=== PATIENT | male | born 1940 | race Caucasian/White ===

== ENCOUNTER → 2016-07-11 | Outpatient (CLI) | payer MEDICARE ==
[2016-07-11 10:58] LABS: Blood Urea Nitrogen 18 mg/dL (9-20); Non-African American GFR(MDRD) >60 (>60 ml/min/1.73 sqM)
== END | disposition home or self-care (01) ==
LOC: LABWHC1 10:14
PROVIDERS: ATTEND Internal Medicine Geriatric Medicine
DX: M45.6 Ankylosing spondylitis lumbar region (principal)
CPT/HCPCS: 36415; 82565; 84520

== ENCOUNTER → 2016-07-12 | Outpatient (CLI) | payer MEDICARE ==
--- NOTE | 2016-07-12 13:10 | MR ---
EXAMINATION TYPE: MR lumbar spine wo/w con DATE OF EXAM: 07/12/2016 12:42 PM COMPARISON: NONE HISTORY: ANKYLOSING SPONDYLITIS LUMBAR REGION TECHNIQUE: Multiplanar, multisequence images of the lumbar spine were acquired utilizing 20 mL intravenous Multi Padmini gadolinium contrast. T12-L1: Moderate disc desiccation noted. Right paracentral disc bulge without herniation. No evidence for central stenosis. Mild right foraminal encroachment. Facet joint arthropathy. L1-L2: Moderate disc desiccation noted. Posterocentral disc bulge without herniation. No evidence for central stenosis. Mild bilateral foraminal encroachment. Facet joint arthropathy. L2-L3: Moderate disc desiccation noted. Right paracentral disc bulge without herniation. No evidence for central stenosis. No significant foraminal encroachment. Facet joint arthropathy. L3-L4: Moderate disc desiccation noted. Posterocentral disc bulge without herniation. No evidence for central stenosis. Mild bilateral foraminal encroachment. Facet joint arthropathy. L4-L5: Severe disc desiccation with vacuum disc identified. Moderate posterior disc bulging. Hypertro phy of the ligamentum flavum and facet joint arthropathy contribute to moderate central stenosis. Jean ateral foraminal encroachment noted. L5-S1: Severe disc desiccation with vacuum disc. Posterocentral disc bulge with partial encapsulating spur resulting in disc endplate complex. Mild bilateral lateral recess stenosis. Facet joint arthrop athy resulting in moderate bilateral foraminal encroachment. Lumbar segments are intact. No paraspinal masses are identified. Conus medullaris has a normal appe arance. There is ventral spondylosis with syndesmophyte formation which may reflect ankylosing spondy litis. IMPRESSION: 1. Multilevel degenerative disc disease greatest at L4-5 where there is moderate central stenosis. 2. syndesmophyte formation suggesting ankylosing spondylitis.
== END | disposition home or self-care (01) ==
LOC: RADMRIMAIN 11:28
PROVIDERS: ATTEND Internal Medicine Geriatric Medicine
DX: M48.06 Spinal stenosis, lumbar region (principal); M51.36 Other intervertebral disc degeneration, lumbar region
CPT/HCPCS: 72158; A9577

== ENCOUNTER 2018-03-24 03:36 | Inpatient (IN) | payer MEDICARE ==
[2018-03-24] MEDS ORDERED: LIDOCAINE 1% INJ 10MG/ML (20 ML MDV) ONE (03:49)
[2018-03-24] MEDS ORDERED: MIDAZOLAM 1 MG/ML 5 ML VIAL IV STA (03:52)
[2018-03-24] MEDS ORDERED: SODIUM CHLORIDE 0.9% 1,000 ML IV ONE ×2 (03:56→05:10)
--- NOTE | 2018-03-24 04:01 | XR ---
EXAMINATION TYPE: XR chest 1V portable DATE OF EXAM: 03/24/2018 COMPARISON: NONE HISTORY: Chest pain TECHNIQUE: Single frontal view of the chest is obtained. FINDINGS: Endotracheal tube is almost 6 cm from the feli. Right subclavian catheter has the tip in the top of the right atrium. Lungs are clear. There is no heart failure. There are chest leads. Bony thorax is intact. Nasogastric tube is in good position. There is a large amount of air in the stomac h. IMPRESSION: Dilated air-filled stomach. No cardiopulmonary disease.
[2018-03-24 04:03] LABS: HCT 52.8 % (39.0-53.0); HGB 16.3 gm/dL (13.0-17.5); Hypochromasia Moderate; MCH 30.3 pg (25.0-35.0); MCHC 30.9 g/dL (31.0-37.0); MCV 98.2 fL (80.0-100.0); Platelet Count 398 k/uL (150-450); Poikilocytosis Slight; RBC 5.38 m/uL (4.30-5.90); RDW 14.2 % (11.5-15.5)
[2018-03-24 04:08] LABS: Albumin 4.2 g/dL (3.5-5.0); Calcium 9.4 mg/dL (8.4-10.2); Total Bilirubin 0.9 mg/dL (0.2-1.3); Total Protein 7.1 g/dL (6.3-8.2)
--- NOTE | 2018-03-24 04:11 | ED ---
General Adult HPI - General Chief complaint: Chest Pain Stated complaint: cardiac Source: EMS Mode of arrival: EMS - History of Present Illness Initial comments: 78-year-old male presents as transfer from outside hospital with acute [place] and shock. Patient was intubated prior to transfer. He is started on heparin and dopamine infusion. History is limited. Patient had ST segment elevation in inferior leads according to transferring physician. Hypotensive, bradycardic. - Related Data Home Medications Medication Instructions Recorded Confirmed Acetaminophen Tab [Tylenol] 650 mg PO Q6H PRN 12/07/15 12/07/15 Doxazosin Mesylate 4 mg PO DAILY 12/07/15 12/07/15 Famotidine [Pepcid] 20 mg PO DAILY 12/07/15 12/07/15 Tamsulosin HCl [Flomax] 0.4 mg PO DAILY 12/07/15 12/07/15 Previous Rx's Medication Instructions Recorded Aspirin 325 mg PO DAILY tab 12/09/15 Atorvastatin [Lipitor] 80 mg PO HS #30 tab 12/09/15 Clopidogrel [Plavix] 75 mg PO DAILY #30 tab 12/09/15 Furosemide [Lasix] 40 mg PO DAILY #30 tab 12/09/15 Isosorbide Mononitrate ER [Imdur] 30 mg PO DAILY #30 tab.er.24h 12/09/15 Lisinopril [Zestril] 10 mg PO BID #60 tab 12/09/15 Loperamide [Imodium] 2 mg PO BID #60 cap 12/09/15 Metoprolol Tartrate [Lopressor] 25 mg PO BID #60 tab 12/09/15 Nitroglycerin Sl Tabs [Nitrostat] 0.4 mg SUBLINGUAL Q5M PRN #25 tab 12/09/15 amLODIPine [Norvasc] 5 mg PO BID 60 Days tab 12/09/15 predniSONE 40 mg PO DAILY #16 tab 12/09/15 Allergies Allergy/AdvReac Type Severity Reaction Status Date / Time Penicillins AdvReac Severe Swelling Verified 12/07/15 17:15 morphine AdvReac Hallucinati Verified 12/07/15 17:21 ons Review of Systems ROS Statement: Those systems with pertinent positive or pertinent negative responses have been documented in the HPI. ROS Other: All systems not noted in ROS Statement are negative. Limitations: ROS unobtainable due to patients medical condition Past Medical History Past Medical History: Hypertension, Prostate Disorder Additional Past Medical History / Comment(s): BPH, ulcerative Colitis, HTN History of Any Multi-Drug Resistant Organisms: None Reported Past Surgical History: Appendectomy, Bowel Resection, Hernia Repair Additional Past Surgical History / Comment(s): Right hernia repair >40 years, colectomy, appendectomy, right-sided chest tube Past Anesthesia/Blood Transfusion Reactions: No Reported Reaction Past Psychological History: No Psychological Hx Reported Smoking Status: Former smoker Past Alcohol Use History: None Reported Past Drug Use History: None Reported - Past Family History Father Family Medical History: Cancer (Lung) Mother Family Medical History: Cancer (Leukemia), Hypertension Additional Family Medical History / Comment(s): 2 sisters 3 brothers one brother from meningitis as a child one brother from the 4 children one daughter with stage IV breast cancer General Exam Limitations: altered mental status General appearance: obtunded Head exam: Present: atraumatic, normocephalic Eye exam: Absent: PERRL (Bilateral pupils nonreactive, 7 mm) ENT exam: Present: mucous membranes dry Respiratory exam: Present: other (Patient intubated, bilateral breath sounds with ventilation) Cardiovascular Exam: Present: regular rate, normal rhythm Expanded Peripheral pulses: 0: Posterior Tibialis (R), Posterior Tibialis (L), Dorsalis Pedis (R), Dorsalis Pedis (L), 1+: Radial (R), Radial (L), 2+: Carotid (R), Carotid (L), Femoral (R), Femoral (L) GI/Abdominal exam: Present: soft. Absent: distended, tenderness Extremities exam: Present: other (Effusion, distal extremities are cyanotic). Absent: pedal edema Neurological exam: Present: other (No spontaneous movement, pupils are fixed and dilated) Skin exam: Present: cyanosis, pallor. Absent: warm Course Vital Signs 03/24/18 03/24/18 03:39 03:53 Pulse Rate 85 99 Respiratory 17 18 Rate Blood Pressure 146/74 126/60 O2 Sat by Pulse 97 Oximetry EKG Findings - EKG Comments: EKG Findings:: EKG: Sinus rhythm, ST segment elevation in the inferior leads, ventricular rate 91, NE interval 196, QRS duration 104, QTC 442, ST segment depression in aVR Procedures - Central Line Placement Right SC Consent Obtained: emergent situation Time Out Performed: Yes Patient Placed on Monitor/Pulse Ox: Yes Prep: mask, gloves Central Line Prep: Chlorhexidine scrub, sterile drapes applied Ultrasound Used for Placement: No Central Line Lumen Inserted: triple Bloods Obtained for Lab: Yes Central Line Position: good blood return, all ports aspirated, flushed, capped, sutured in place with nylon Dressing Applied: Tegaderm Post Procedure X-Ray: tip of catheter in good position Patient Tolerated Procedure: well Complications: none Medical Decision Making - Medical Decision Making 78-year-old male presenting as transfer from outside facility as ST segment elevated [place]. Patient is in shock, peripheral cyanosis, central pulses are intact, he does have a measurable blood pressure on initial evaluation. He is continued on dopamine and heparin. EKG shows ST segment elevation in the inferior leads. Patient is taken to the [facility] Electrical Techn[facility] after initial stabilization in the emergency department, total time in the emergency department 15-20 minutes. He receives IV hydration, central access is placed in the right subclavian vein. One view chest x-ray obtained after central line placement, ET tube is in good position, central line is in good position with no pneumothorax. All laboratory studies pending. Case is discussed with cardiology both prehospital and while the patient is in the emergency department. Dr. Goldstein will take patient to the [facility]. - Lab Data Result diagrams: 03/24/18 03:47 03/24/18 03:47 Lab Results 03/24/18 03/24/18 03/24/18 Range/Units 03:47 03:47 03:47 WBC 25.0 H (3.8-10.6) k/uL RBC 5.38 (4.30-5.90) m/uL Hgb 16.3 (13.0-17.5) gm/dL Hct 52.8 (39.0-53.0) % MCV 98.2 (80.0-100.0) fL MCH 30.3 (25.0-35.0) pg MCHC 30.9 L (31.0-37.0) g/dL RDW 14.2 (11.5-15.5) % Plt Count 398 (150-450) k/uL PT (9.0-12.0) sec INR (<1.2) APTT (22.0-30.0) sec Sodium 135 L (137-145) mmol/L Potassium 6.5 H* (3.5-5.1) mmol/L Chloride 106 (98-107) mmol/L Carbon Dioxide 5 L* (22-30) mmol/L Anion Gap 24 mmol/L BUN 119 H* (9-20) mg/dL Creatinine 13.69 H* (0.66-1.25) mg/dL Est GFR (CKD-EPI)AfAm 4 (>60 ml/min/1.73 sqM) Est GFR (CKD-EPI)NonAf 3 (>60 ml/min/1.73 sqM) Glucose 209 H (74-99) mg/dL Calcium 9.4 (8.4-10.2) mg/dL Total Bilirubin 0.9 (0.2-1.3) mg/dL AST 72 H (17-59) U/L ALT 71 (21-72) U/L Alkaline Phosphatase 59 (38-126) U/L Total Creatine Kinase 433 H (55-170) U/L Total Protein 7.1 (6.3-8.2) g/dL Albumin 4.2 (3.5-5.0) g/dL 03/24/18 Range/Units 03:47 WBC (3.8-10.6) k/uL RBC (4.30-5.90) m/uL Hgb (13.0-17.5) gm/dL Hct (39.0-53.0) % MCV (80.0-100.0) fL MCH (25.0-35.0) pg MCHC (31.0-37.0) g/dL RDW (11.5-15.5) % Plt Count (150-450) k/uL PT 11.2 (9.0-12.0) sec INR 1.1 (<1.2) APTT >200.0 H* (22.0-30.0) sec Sodium (137-145) mmol/L Potassium (3.5-5.1) mmol/L Chloride (98-107) mmol/L Carbon Dioxide (22-30) mmol/L Anion Gap mmol/L BUN (9-20) mg/dL Creatinine (0.66-1.25) mg/dL Est GFR (CKD-EPI)AfAm (>60 ml/min/1.73 sqM) Est GFR (CKD-EPI)NonAf (>60 ml/min/1.73 sqM) Glucose (74-99) mg/dL Calcium (8.4-10.2) mg/dL Total Bilirubin (0.2-1.3) mg/dL AST (17-59) U/L ALT (21-72) U/L Alkaline Phosphatase (38-126) U/L Total Creatine Kinase (55-170) U/L Total Protein (6.3-8.2) g/dL Albumin (3.5-5.0) g/dL Critical Care Time Critical Care Time: Yes Total Critical Care Time: 20 Disposition Clinical Impression: ST elevation myocardial infarction (STEMI), Shock Disposition: ADMITTED IP TO THIS [facility] Condition: Serious Is patient prescribed a controlled substance at d/c from ED?: No Decision to Admit Reason: Admit from EC Decision Date: 03/24/18 Decision Time: 04:11
[2018-03-24 04:19] LABS: INR 1.1 (<1.2); Prothrombin Time 11.2 sec (9.0-12.0)
[2018-03-24] MEDS ORDERED: LIDOCAINE 1% INJ 10MG/ML (20 ML MDV) SQ ONE (04:20)
[2018-03-24] MEDS ORDERED: NALOXONE 0.4 MG/ML 1 ML VIAL IV PRN (04:23)
[2018-03-24 04:24] LABS: Potassium 6.5 mmol/L (3.5-5.1)
[2018-03-24 04:35] LABS: Troponin I 2.41 ng/mL (0.000-0.034)
[2018-03-24] MEDS ORDERED: SODIUM BICARB 8.4% 50 ML SYR (1 MEQ/ML) IV ONE ×3 (04:35→05:04)
[2018-03-24 04:38] LABS: Basophils # (A) 0.1 k/uL (0-0.2); Basophils % (A) 0 %; Eosinophils # (A) 0.5 k/uL (0-0.7); Eosinophils % (A) 2 %; HCT 50.2 % (39.0-53.0); HGB 16.1 gm/dL (13.0-17.5); Lymphocytes # (A) 2.2 k/uL (1.0-4.8); Lymphocytes % (A) 9 %; MCH 30.7 pg (25.0-35.0); MCV 95.9 fL (80.0-100.0); Mean Platelet Volume 6.9; Monocytes # (A) 1.2 k/uL (0-1.0); Monocytes % (A) 5 %; Neutrophils # (A) 19.5 k/uL (1.3-7.7); Neutrophils % (A) 82 %; Platelet Count 388 k/uL (150-450); RBC 5.24 m/uL (4.30-5.90); RDW 12.8 % (11.5-15.5); WBC 23.8 k/uL (3.8-10.6)
[2018-03-24 04:42] LABS: ABG HCO3 8 mmol/L (21-25); ABG PCO2 38 mmHg (35-45); ABG PH <7.00 (7.35-7.45); ABG PO2 >400 mmHg (83-108)
[2018-03-24 04:43] LABS: ABG Base Excess -24.4 mmol/L
[2018-03-24 04:43] LABS: Calcium 8.4 mg/dL (8.4-10.2)
[2018-03-24] MEDS ORDERED: BIVALIRUDIN BOLUS 250 MG/50 ML IV ONE (04:45)
[2018-03-24] MEDS ORDERED: BIVALIRUDIN 250 MG in SODIUM CHLORIDE 0.9% 50 ML IV ONE (04:48)
[2018-03-24] MEDS ORDERED: IOPAMIDOL-370 100ML BTL INJ ONE ×4 (04:55→05:33)
[2018-03-24 05:00] LABS: Lymphocytes # (M) 2.75 k/uL (1.0-4.8); Monocytes # (M) 2.25 k/uL (0-1.0); Neutrophils % (M) 78 %; Nucleated Red Blood Cells 0 /100 WBC (0-0); Total Cells Counted 100
[2018-03-24 05:00] LABS: Potassium 6.6 mmol/L (3.5-5.1)
[2018-03-24] MEDS ORDERED: DOPamine DRIP 800 MG in DEXTROSE/WATER 1 500ML.BAG IV ONE (05:09)
[2018-03-24] MEDS ORDERED: NOREPINEPHRINE 4 MG in SODIUM CHLORIDE 0.9% 250 ML IV ONE (05:09)
[2018-03-24] MEDS ORDERED: INSULIN REGULAR 100 UNIT/ML VIAL IV ONE ×2 (05:16→09:12)
[2018-03-24] MEDS ORDERED: TICAGRELOR 90 MG TAB ONE (05:25)
[2018-03-24] MEDS ORDERED: TICAGRELOR 90 MG TAB OG-TUBE ONE (05:32)
[2018-03-24] MEDS ORDERED: DEXTROSE 50%-WATER 50 ML SYRINGE IVP ONE (05:52)
[2018-03-24 06:16] LABS: Glucose,Whole Blood 228 mg/dL (75-99)
[2018-03-24] MEDS ORDERED: SODIUM CHLORIDE 0.9% 500 ML 500 ML IV ONE (06:30)
[2018-03-24 06:31] LABS: Basophils # (A) 0.1 k/uL (0-0.2); Basophils % (A) 0 %; Eosinophils # (A) 0.2 k/uL (0-0.7); Eosinophils % (A) 1 %; HCT 46.7 % (39.0-53.0); HGB 14.9 gm/dL (13.0-17.5); Lymphocytes # (A) 1.4 k/uL (1.0-4.8); Lymphocytes % (A) 8 %; MCH 30.9 pg (25.0-35.0); MCHC 31.9 g/dL (31.0-37.0); MCV 96.9 fL (80.0-100.0); Mean Platelet Volume 7.7; Monocytes # (A) 0.7 k/uL (0-1.0); Monocytes % (A) 3 %; Neutrophils # (A) 16.7 k/uL (1.3-7.7); Neutrophils % (A) 88 %; Platelet Count 349 k/uL (150-450); RBC 4.82 m/uL (4.30-5.90); RDW 13.1 % (11.5-15.5)
[2018-03-24 06:34] LABS: ABG TCO2 7 mmol/L (19-24)
[2018-03-24] MEDS ORDERED: IPRATROPIUM-ALBUTEROL 3 ML NEB INHALATION PRN (06:36)
[2018-03-24 06:41] LABS: Calcium 8.1 mg/dL (8.4-10.2)
[2018-03-24] MEDS ORDERED: SODIUM CHLORIDE 0.9% 1,000 ML IV SCH (06:45)
[2018-03-24] MEDS ORDERED: INSULIN REGULAR BOLUS (FROM DRIP BAG) IV PRN (06:46)
[2018-03-24 06:51] LABS: Potassium 6.5 mmol/L (3.5-5.1)
[2018-03-24 06:54] LABS: ABG PCO2 28 mmHg (35-45); ABG PH <7.00 (7.35-7.45); ABG PO2 101 mmHg (83-108)
[2018-03-24 06:55] LABS: ABG Base Excess -26.6 mmol/L; ABG HCO3 6 mmol/L (21-25); ABG TCO2 7 mmol/L (19-24)
[2018-03-24] MEDS ORDERED: NOREPINEPHRINE 16 MG in SODIUM CHLORIDE 0.9% 250 ML IV SCH (07:00)
[2018-03-24] MEDS ORDERED: DEXTROSE 5% IN WATER 1,000 ML with SODIUM BICARB (1 MEQ/ML) 150 ML IV SCH (07:00)
[2018-03-24] MEDS ORDERED: DOBUTamine DRIP 500 MG in DEXTROSE/WATER 1 250ML.BAG IV SCH (07:00)
[2018-03-24] MEDS ORDERED: INSULIN REGULAR 100 UNIT in SODIUM CHLORIDE 0.9% 100 ML IV SCH (07:00)
[2018-03-24] MEDS ORDERED: SODIUM POLYSTYRENE SULFONATE 15 GM/60 ML BOTTLE PO STA (07:05)
--- NOTE | 2018-03-24 07:13 | XR ---
EXAMINATION TYPE: XR chest 1V DATE OF EXAM: 03/24/2018 HISTORY: Tube placement. REFERENCE: Previous study dated 03/24/2018. FINDINGS: The patient remains intubated. An NG tube is present with its tip in the stomach. There is a right subclavian catheter in place. Its tip is within the right atrium. There is minimal left basilar atelectasis. The heart is not enlarged. Pleural spaces are clear. IMPRESSION: MILD ATELECTASIS, LEFT LUNG BASE.
[2018-03-24] MEDS ORDERED: IPRATROPIUM-ALBUTEROL 3 ML NEB INHALATION SCH (08:00)
[2018-03-24 08:09] LABS: Glucose,Whole Blood 146 mg/dL (75-99)
[2018-03-24] MEDS ORDERED: PROPOFOL 1,000 MG in EMPTY BAG 1 BAG IV SCH (08:30)
--- NOTE | 2018-03-24 08:43 | CC ---
CARDIAC CATHETERIZATION REPORT DATE OF SERVICE: 03/24/2018. PROCEDURE: 1. Left heart catheterization and coronary angiography. 2. Intra-aortic balloon pump placement from left femoral approach. 3. PTCA and stenting of a totally occluded super dominant RCA in the mid portion with 2 drug-eluting stents. PROCEDURE PERFORMED BY: Dr. Mary Goldstein. SEDATION: Moderate conscious sedation time was 64 minutes. The patient was already sedated with Versed. Oxygen saturation and hemodynamics were monitored very closely. Patient was on a ventilator. PROCEDURE NOTE: Under local anesthesia and strict aseptic precautions, I placed a 6-Grenadian introducer in the right femoral artery as well as in the left femoral artery. From the left femoral artery under fluoroscopic guidance, a balloon pump was placed after changing the sheath to 8-Grenadian. The balloon pump was positioned at the aortic knuckle just below the subclavian artery with good augmentation. I then proceeded to perform coronary angiography from the right femoral approach. I started out by using a standard right Bridgett catheter and noted that the RCA was a very super dominant vessel totally occluded in the mid portion after large acute marginal branch. I proceeded to perform intervention of this vessel before any other injection because we knew the anatomy on the left side on his previous cardiac cath from November 2015. His cath from November 2015 revealed that the stent of circumflex was performed in the first obtuse marginal and LAD did not have significant disease and RCA pictures were not available in the study at [facility]. I switched over to a 6-Grenadian multipurpose 1 guide catheter and cannulated the right coronary artery. A run-through wire was used to cross the lesion. Without predilatation, I deployed a 12 mm long 2.75 caliber Xience stent at the site of total occlusion and an additional 2.75 caliber 15 mm long stent distal to it. Excellent angiographic result was achieved. Patient's EKG normalized. Hemodynamically stabilized. I then reduced the dose of dopamine and added Levophed. We were able to bring down the Levophed to 7.5 and dopamine 2.5 with augmentation between 95-104 on the balloon pump. Distal pulses were palpable but diminished in the legs. I then performed the rest of coronary angiography. I did a standard left Bridgett catheter to perform selective coronary angiography of the left system and a pigtail catheter was used to check LV pressures. LV gram was not performed. The left ventricle end-diastolic pressure was about 18 mmHg and there was a gradient of less than 20 mmHg across the aortic valve on the pullback tracings. Coronary angiography revealed that the LAD had no significant disease and circumflex at the site of previous stenting was widely patent with no more than 30% narrowing. The patient had a excellent angiographic result, but it is unclear how much his hypoperfusion would affect his overall prognosis. Another compounding and clearly compounding and clearly a poor prognostic sign as the creatinine was more than 12.0 and it appears that the patient has an acute on chronic renal failure. We will therefore continue to hydrate him aggressively. The patient's left femoral artery had an intra- aortic balloon pump with 8-Grenadian sheath and this was carefully sutured. The right femoral arterial sheath was also a 6-Grenadian was also to sutured. The patient was sent to the ICU on the balloon pump with 1-1 conduction with a dopamine of 2.5 and Levophed of 7.5. There was no urine output noted. Prognosis remains poor. The details were discussed with the patient's family members and as well as his that prognosis is poor and mortality risk is high. The patient received Angiomax bolus and infusion as per protocol at the reduced dose as per his renal condition. CARDIAC CATHETERIZATION FINDINGS: Left ventricle end-diastolic pressure was about 16-18 mmHg with a less than 20 mm gradient across aortic valve. CORONARY ANGIOGRAPHY FINDINGS: LEFT MAIN CORONARY ARTERY: This is a short patent vessel that bifurcates into LAD and circumflex. No significant disease in the left main coronary artery. LEFT ANTERIOR DESCENDING CORONARY ARTERY: This is a good caliber vessel, has some bridging in the midportion, but no significant disease. There are minor irregularities, gives off a diagonal branch both proximally as well after some septal branches. No significant disease, but there is a myocardial bridging in the mid LAD noted. It is a fair caliber, fair distribution vessel. LEFT POSTERIOR CIRCUMFLEX CORONARY ARTERY: This vessel had a stent in the first obtuse marginal, which is widely patent. The entire circumflex system is nondominant, has minor irregularities. No significant disease. RIGHT CORONARY ARTERY: A super dominant vessel that is totally occluded in the mid portion after the origin of acute marginal branch. PCI RESULTS: Two drug-eluting stents were deployed at the site of total occlusion in the dominant RCA. An excellent angiographic result was achieved with remarkably good angiographic appearance and flow and total resolution of EKG changes. Findings, results and details were discussed with the patient and the family. Prognosis remains poor. MMODL / IJN: [id number] /
--- NOTE | 2018-03-24 08:49 | CONS ---
CONSULTATION This is a 78-year-old gentleman with a history of CAD, hypertension, hypercholesterolemia who sees Dr. Cantrell in the outpatient setting and Dr. Guaman in the office. He came in to the hospital at [facility], brought in by the EMS and the patient's family was with him, specifically his indicated that for 1 week he has not been eating or drinking and throwing up almost every day. He went to the bathroom then he did not return back. She went in and saw that he was on his knees and appeared to be pale, diaphoretic, having difficulty speaking. EMS was called and patient was brought to the hospital with a consideration he may have a potential CVA. However, 12-lead EKG revealed inferolateral ST-segment elevation and patient was quite hypotensive. He was also unresponsive, became aphasic, was intubated and given dopamine up to 20 mics with a pressure of about 95 systolic. He was transferred here to the emergency room at [facility]. After arrival he was found to be still hypoperfused with cold extremities, but the pressure was in the range of 106 or so. His chest x-ray revealed that the ET tube was in good position. 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 When I saw the patient, he was unresponsive, intubated and from the mouth there was lot of blood oozing out probably from the intubation efforts and poor dental hygiene. Very little history was obtained by me, but I noted that his old cath films from 2016 revealed that he had a stenting of the first obtuse marginal branch of circumflex performed, which was a very high very high obtuse marginal with a 2.25 caliber drug-eluting stent. His RCA images were not seen because the cath was not performed here. I immediately advised prompt cardiac cath and intervention, but I explained to the patient's family that the risk of mortality is more than 70% given his presentation and also hypoperfusion type picture. The patient seems to be fairly well oxygenated. I went and spoke to the patient's and children and apprised them of the situation that the prognosis is poor and mortality risk is high and then came back in to perform the procedure. MEDICATIONS: At home include atorvastatin 20 mg daily, Imdur 30 mg daily, metoprolol 25 mg b.i.d., aspirin 325 mg daily. He takes Xanax, Celexa, lisinopril 20 mg daily. Patient quit smoking more than 10 years ago. He has benign prostatic hypertrophy as well. PHYSICAL EXAMINATION: Blood pressure was about 106 systolic here. Heart rate was about 100 and appeared to have an inferior ST elevation as well as ST elevation in leads V4, V5 and V6. The rhythm was sinus. Head and neck was supple. I could not appreciate any JVD. S1-S2 heard distantly. Lungs reveal diminished air entry with ventilator. Abdomen and lower exam was unremarkable. Pulses were palpable but diminished. IMPRESSION: 1. Acute inferoapical lateral myocardial infarction with hypotension and cardiogenic shock. 2. Laboratory data suggests that his creatinine is more than 12, probably patient was severely dehydrated and hypovolemic with a acute on chronic renal failure type picture. 3. History of PCI of circumflex 2 years ago. 4. Hypertension. 5. Hyperlipidemia. 6. Benign prostatic hypertrophy. RECOMMENDATION: I recommended prompt cardiac cath and PCI and proceeded to perform the procedure expeditiously. MART / IJN: [id number] /
[2018-03-24 08:57] LABS: ABG Base Excess -25.8 mmol/L; ABG Oxygen Saturation 95.1 % (94-97); ABG PCO2 32 mmHg (35-45); ABG PO2 92 mmHg (83-108); ABG TCO2 8 mmol/L (19-24)
--- NOTE | 2018-03-24 08:57 | P.CNPUL ---
History of Present Illness Consult date: 03/24/18 Chief complaint: Acute [place], acute cardiogenic shock History of present illness: 78-year-old male patient with known history of coronary artery disease, with previous history of coronary intervention and stenting of the OM back in 2015, presented to [facility] because of generalized weakness and he was found to be profoundly hypotensive and in shock state. Apparently the patient is feeling weak for the past almost 5-7 days and he did not seek any medical attention. His initial sinus rhythm was sinus. In the emergency department he was cyanotic and he was hypothermic and he progressively low diminished level of consciousness to the point where the patient had to be intubated and placed on a mechanical ventilator. The intubation was done at [facility]. He was started on dopamine for hemodynamic support as the patient had hypotension postintubation. A tripple lumen cath was inserted in the right subclavian. Initial EKG showing ST segment elevation inferior leads consistent with acute inferior wall myocardial infarction. The patient was immediately taken to the Clinical Program [facility]. He was in cardiogenic shock. He was profoundly hypotensive he had an intra-aortic balloon pump was inserted and following that the patient underwent an emergent cardiac catheterization where he underwent stenting of the RCA. 2 stents were placed with good angiographic results. The patient during the procedure went into atrial fibrillation. He also had a run of V. tach following the procedure requiring defibrillation. At this point in time the patient is unresponsive, intubated on a mechanical ventilator. At the time of arrival this morning he was an assist-control mode at the rate of 12 with a tidal volume of 500 FiO2 of 100% and PEEP of 5. His initial blood gases with a pH of 6.9 with a pCO2 of 28 and pO2 of 11. His BUN his 117 a creatinine of 12.3. He has a Ramirez catheter and he is producing any urine output. His blood work shows a potassium level of 6.5, bicarb level of 7 , lactic acid level is at 6.9. Troponin peaked at 4.0. BNP level is 3080. The patient is hypothermic. His initial temperature was 90. External warming is being performed a right on his subsequent temperature came up to 92. He was becoming slightly asynchronous with a mechanical ventilator. Based on that I started him on sedation and currently is on 10 mics of propofol. The patient is an massive cardiogenic shock. He is on 60 mics of norepinephrine infusion. He is also on dopamine 5 g and dobutamine at 5 g and as mentioned he has an intra-aortic balloon pump with 1-1 augmentation. The patient has marked diminished pulses in lower extremities bilaterally and minimal Doppler signals can be appreciated in the feet bilaterally. Pupils are about 8 mm in size and sluggishly reactive to light. Unresponsive. Does not follow any commands. Does not withdraw to painful stimulation. He is also on insulin drip for blood sugar control. The patient is also on a bicarb drip at 200 mL an hour. He was severely acidotic. He was also given 3 A of bicarb infusion here in the intensive care unit. Review of Systems ROS unobtainable: due to endotracheal tube Past Medical History Past Medical History: Hypertension, Prostate Disorder Additional Past Medical History / Comment(s): BPH, ulcerative Colitis, HTN, coronary artery disease, hyperlipidemia History of Any Multi-Drug Resistant Organisms: None Reported Past Surgical History: Appendectomy, Bowel Resection, Hernia Repair Additional Past Surgical History / Comment(s): Right hernia repair >40 years, colectomy, appendectomy, right-sided chest tube Past Anesthesia/Blood Transfusion Reactions: No Reported Reaction Past Psychological History: No Psychological Hx Reported Smoking Status: Former smoker Past Alcohol Use History: None Reported Past Drug Use History: None Reported - Past Family History Father Family Medical History: Cancer (Lung) Mother Family Medical History: Cancer (Leukemia), Hypertension Additional Family Medical History / Comment(s): 2 sisters 3 brothers one brother from meningitis as a child one brother from the 4 children one daughter with stage IV breast cancer Medications and Allergies Home Medications Medication Instructions Recorded Confirmed Type Acetaminophen Tab [Tylenol] 650 mg PO Q6H PRN 12/07/15 12/07/15 History Doxazosin Mesylate 4 mg PO DAILY 12/07/15 12/07/15 History Famotidine [Pepcid] 20 mg PO DAILY 12/07/15 12/07/15 History Tamsulosin HCl [Flomax] 0.4 mg PO DAILY 12/07/15 12/07/15 History Aspirin 325 mg PO DAILY tab 12/09/15 Rx Atorvastatin [Lipitor] 80 mg PO HS #30 tab 12/09/15 Rx Clopidogrel [Plavix] 75 mg PO DAILY #30 tab 12/09/15 Rx Furosemide [Lasix] 40 mg PO DAILY #30 tab 12/09/15 Rx Isosorbide Mononitrate ER [Imdur] 30 mg PO DAILY #30 tab.er.24h 12/09/15 Rx Lisinopril [Zestril] 10 mg PO BID #60 tab 12/09/15 Rx Loperamide [Imodium] 2 mg PO BID #60 cap 12/09/15 Rx Metoprolol Tartrate [Lopressor] 25 mg PO BID #60 tab 12/09/15 Rx Nitroglycerin Sl Tabs [Nitrostat] 0.4 mg SUBLINGUAL Q5M PRN #25 tab 12/09/15 Rx amLODIPine [Norvasc] 5 mg PO BID 60 Days tab 12/09/15 Rx predniSONE 40 mg PO DAILY #16 tab 12/09/15 Rx Allergies Allergy/AdvReac Type Severity Reaction Status Date / Time Penicillins AdvReac Severe Swelling Verified 12/07/15 17:15 morphine AdvReac Hallucinati Verified 12/07/15 17:21 ons Physical Exam Vitals: Vital Signs Pulse Resp BP Pulse Ox 03/24/18 03:53 99 18 126/60 97 03/24/18 03:39 85 17 146/74 Intake and Output 03/23/18 03/24/18 03/24/18 22:59 06:59 14:59 Intake Total 637.2 Balance 637.2 Intake: IV 637.2 Other: Weight 97.069 kg Patient currently intubated on a mechanical ventilator. The patient is unresponsive. He was slightly asynchronous with a mechanical ventilator and based on that he was placed on propofol infusion. Orogastric and orotracheal tube in place. Head exam was generally normal. There was no scleral icterus or corneal arcus. Mucous membranes were moist. Neck was supple and with jugular venous distension, thyromegaly, or carotid bruits. Carotids were easily palpable bilaterally. There was no adenopathy. Patient has positive JVDs bilaterally. Lungs sounds are diminished bilaterally. Breath sounds are equal and symmetrical. No wheezes. No rhonchi. No crackles. Heart sounds are irregular S1-S2 consistent with atrial fibrillation. Overall heart sounds are distant. No significant murmurs could be appreciated. No right ventricular heave or thrill. Abdominal exam revealed normal bowel sounds. The abdomen was soft, non-tender, and without masses, organomegaly, or appreciable enlargement of the abdominal aorta. Extremities are cold and clammy and somewhat cyanotic. Pulses are barely appreciated in the lower extremities bilaterally and there is a very poor Doppler signal. The patient has an aortic balloon pump inserted through his left femoral artery. The patient also has a right femoral sheath. He also has a Artline in the right femoral area. Neurologically, the patient has a 7-8 mm pupils which is sluggishly reactive to light. There is no nystagmus. The lites reflex is present. No preferential gaze. No facial asymmetry. Motor and sensory function cannot be accurately assessed. Reflexes are diminished bilaterally. No clonus. No Babinski. Examination of the skin revealed no evidence of significant rashes, suspicious appearing nevi or other concerning lesions. The skin is mottled and lower extremities bilaterally and the patient is cyanotic. Results - Laboratory Findings CBC and BMP: 03/24/18 06:15 03/24/18 06:15 ABG ABG pH <7.00 (7.35-7.45) L* 03/24/18 06:30 ABG pCO2 28 mmHg (35-45) L 03/24/18 06:30 ABG pO2 101 mmHg (83-108) 03/24/18 06:30 ABG O2 Saturation 96.0 % (94-97) 03/24/18 06:30 PT/INR, D-dimer PT 11.2 sec (9.0-12.0) 03/24/18 03:47 INR 1.1 (<1.2) 03/24/18 03:47 Abnormal lab findings: Abnormal Labs 03/24/18 03/24/18 03/24/18 03:47 03:47 03:47 WBC 25.0 H MCHC 30.9 L Neutrophils # Neutrophils # (Manual) 19.50 H Monocytes # Monocytes # (Manual) 2.25 H APTT ABG pH ABG pCO2 ABG pO2 ABG HCO3 ABG Total CO2 ABG O2 Saturation Sodium 135 L Potassium 6.5 H* Chloride Carbon Dioxide 5 L* BUN 119 H* Creatinine 13.69 H* Glucose 209 H POC Glucose (mg/dL) Plasma Lactic Acid Edouard Calcium Magnesium AST 72 H Total Creatine Kinase 433 H CK-MB (CK-2) 32.0 H Troponin I 2.410 H* 03/24/18 03/24/18 03/24/18 03:47 03:47 04:25 WBC MCHC Neutrophils # Neutrophils # (Manual) Monocytes # Monocytes # (Manual) APTT >200.0 H* ABG pH <7.00 L* ABG pCO2 ABG pO2 >400 H ABG HCO3 8 L* ABG Total CO2 7 L ABG O2 Saturation 99.0 H Sodium Potassium Chloride Carbon Dioxide BUN Creatinine Glucose POC Glucose (mg/dL) Plasma Lactic Acid Edouard Calcium Magnesium 3.4 H AST Total Creatine Kinase CK-MB (CK-2) Troponin I 03/24/18 03/24/18 03/24/18 04:30 04:30 06:14 WBC 23.8 H MCHC Neutrophils # 19.5 H Neutrophils # (Manual) Monocytes # 1.2 H Monocytes # (Manual) APTT ABG pH ABG pCO2 ABG pO2 ABG HCO3 ABG Total CO2 ABG O2 Saturation Sodium Potassium 6.6 H* Chloride 109 H Carbon Dioxide 9 L* BUN 116 H* Creatinine 12.33 H* Glucose 176 H POC Glucose (mg/dL) 228 H Plasma Lactic Acid Edouard Calcium Magnesium AST Total Creatine Kinase CK-MB (CK-2) Troponin I 03/24/18 03/24/18 03/24/18 06:15 06:15 06:15 WBC 19.0 H MCHC Neutrophils # 16.7 H Neutrophils # (Manual) Monocytes # Monocytes # (Manual) APTT ABG pH ABG pCO2 ABG pO2 ABG HCO3 ABG Total CO2 ABG O2 Saturation Sodium 134 L Potassium 6.5 H* Chloride Carbon Dioxide 7 L* BUN 117 H* Creatinine 12.30 H* Glucose 228 H POC Glucose (mg/dL) Plasma Lactic Acid Edouard Calcium 8.1 L Magnesium AST Total Creatine Kinase CK-MB (CK-2) Troponin I 4.030 H* 03/24/18 03/24/18 03/24/18 06:30 06:55 08:05 WBC MCHC Neutrophils # Neutrophils # (Manual) Monocytes # Monocytes # (Manual) APTT ABG pH <7.00 L* ABG pCO2 28 L ABG pO2 ABG HCO3 6 L* ABG Total CO2 7 L ABG O2 Saturation Sodium Potassium Chloride Carbon Dioxide BUN Creatinine Glucose POC Glucose (mg/dL) 146 H Plasma Lactic Acid Edouard 6.9 H* Calcium Magnesium AST Total Creatine Kinase CK-MB (CK-2) Troponin I - Diagnostic Findings Chest x-ray: image reviewed Assessment and Plan Plan: Assessment [address] segment elevation myocardial infarction, post emergent cardiac catheterization and post stenting of the RCA 2 cardiogenic shock following acute STEMI. The patient has an intra-aortic balloon pump. The patient is on high dose of pressors including norepinephrine , dopamine and dobutamine. The patient also has an intra-aortic balloon pump. Blood pressure remains low and the patient is anuric 3 acute kidney injury. The patient is currently not producing any urine output. Creatinine is up to 1.3 with a potassium level of 6.5 4 acute hyperkalemia 5 acute anion gap metabolic acidosis/lactic acidosis secondary to above 6 acute respiratory failure currently intubated on a mechanical ventilator 7 coronary artery disease with previous intervention stenting of the OM 8 hypertension 9 hyperlipidemia 10 BPH 11 hypothermia Plan Patient is critically ill. The patient is a massive cardiogenic shock. He is showing signs of multisystem organ failure. Continue resuscitate, continue the bicarb drip. Continue intra-aortic balloon pump. Repeat blood gases. Necessary vent changes were done. We'll put this patient on a assist-control mode at the rate of 20 with a tidal volume of 550 and gradually wean down the FiO2 to maintain a saturation above 92%. Keep the PEEP at 5 at this point in time. Chest x-ray was reviewed. We will start on empiric antibiotic coverage. Continue the supportive care and obtain echocardiogram. Discussed the case with cardiology. Continue aspirin. Continue Plavix. Continue current pressors. Continue the bicarb infusion. Prognosis poor. He had advanced directives indicating no CPR no intubation no dialysis no long-term supportive care. Care is a very high mortality based on the above-mentioned comorbidities.
[2018-03-24 09:00] LABS: ABG HCO3 7 mmol/L (21-25)
[2018-03-24] MEDS ORDERED: PANTOPRAZOLE 40 MG/10 ML VIAL IV SCH (09:00)
[2018-03-24] MEDS ORDERED: ASPIRIN 325 MG TAB PO SCH (09:00)
[2018-03-24] MEDS ORDERED: CLOPIDOGREL 75 MG TAB PO SCH (09:00)
[2018-03-24] MEDS ORDERED: CLOPIDOGREL 75 MG TAB NG-TUBE SCH (09:00)
[2018-03-24] MEDS ORDERED: CHLORHEXIDINE GLUCONATE 15 ML CUP MUCOUS MEM SCH (09:00)
[2018-03-24] MEDS ORDERED: ASPIRIN 81 MG NG-TUBE SCH (09:00)
[2018-03-24] MEDS ORDERED: DEXTROSE 50%-WATER 50 ML SYRINGE IVP STA (09:12)
[2018-03-24] MEDS ORDERED: CALCIUM CHLORIDE 1,000 MG in SODIUM CHLORIDE 0.9% 100 ML IVPB STA (09:13)
[2018-03-24] MEDS ORDERED: FUROSEMIDE 10 MG/ML 10 ML VIAL IV STA (09:14)
[2018-03-24] MEDS ORDERED: EPINEPHrine 2 MG in DEXTROSE 5% IN WATER 250 ML IV SCH ×2 (09:15)
[2018-03-24] MEDS ORDERED: ALBUTEROL NEBULIZED (CONC) 20 MG, SODIUM CHLORIDE 0.9% NEBULIZ 3 ML INHALATION ONE ×2 (09:15)
--- NOTE | 2018-03-24 09:36 | P.NPCON ---
History of Present Illness - Reason for Consult acute renal failure - History of Present Illness Reason for consultation: Acute kidney injury History of present illness: Patient is a 78-year-old male seen in renal consultation for acute kidney injury. Patient's creatinine in June 2016 was 1.1. This admission was 13.69 and is 12.3 this morning. Patient was found down by his and subsequently EMS was called. On the way to the emergency room the patient had a cardiac arrest. He was noted to have a STEMI and underwent a catheterization last night with 2 stents placed to the RCA. He also has a balloon pump in place. Patient went into V. tach during cardiac catheterization and required a shock. He is currently intubated and sedated. He is on multiple vasopressors including 65 mics of Levophed, dobutamine and dopamine. Epinephrine will be started as well. He is maintained on bicarb drip at 200 mL an hour and normal saline at 50 mL an hour. He is oliguric. Patient remains persistently hyperkalemic with potassium level of 6.5. He is also acidotic with a bicarbonate level of 7 this morning. PTH was noted to be less than 7. Vital signs are unstable. Patient's on multiple vasopressors and remains hypotensive. General: The patient appeared well nourished and normally developed. HEENT: Head exam is unremarkable. Neck is without jugular venous distension. Intubated. LUNGS: Scattered rhonchi. HEART: Rate and Rhythm are regular. First and second heart sounds normal. No murmurs, rubs or gallops. ABDOMEN: Abdominal exam reveals normal bowel sounds. Non-tender and non- distended. No evidence of peritonitis. EXTREMITITES: No clubbing, cyanosis, or edema. Past Medical History Past Medical History: Hypertension, Prostate Disorder Additional Past Medical History / Comment(s): BPH, ulcerative Colitis, HTN, coronary artery disease, hyperlipidemia History of Any Multi-Drug Resistant Organisms: None Reported Past Surgical History: Appendectomy, Bowel Resection, Hernia Repair Additional Past Surgical History / Comment(s): Right hernia repair >40 years, colectomy, appendectomy, right-sided chest tube Past Anesthesia/Blood Transfusion Reactions: No Reported Reaction Past Psychological History: No Psychological Hx Reported Smoking Status: Former smoker Past Alcohol Use History: None Reported Past Drug Use History: None Reported - Past Family History Father Family Medical History: Cancer (Lung) Mother Family Medical History: Cancer (Leukemia), Hypertension Additional Family Medical History / Comment(s): 2 sisters 3 brothers one brother from meningitis as a child one brother from the 4 children one daughter with stage IV breast cancer Medications and Allergies Home Medications Medication Instructions Recorded Confirmed Type Acetaminophen Tab [Tylenol] 650 mg PO Q6H PRN 12/07/15 12/07/15 History Doxazosin Mesylate 4 mg PO DAILY 12/07/15 12/07/15 History Famotidine [Pepcid] 20 mg PO DAILY 12/07/15 12/07/15 History Tamsulosin HCl [Flomax] 0.4 mg PO DAILY 12/07/15 12/07/15 History Aspirin 325 mg PO DAILY tab 12/09/15 Rx Atorvastatin [Lipitor] 80 mg PO HS #30 tab 12/09/15 Rx Clopidogrel [Plavix] 75 mg PO DAILY #30 tab 12/09/15 Rx Furosemide [Lasix] 40 mg PO DAILY #30 tab 12/09/15 Rx Isosorbide Mononitrate ER [Imdur] 30 mg PO DAILY #30 tab.er.24h 12/09/15 Rx Lisinopril [Zestril] 10 mg PO BID #60 tab 12/09/15 Rx Loperamide [Imodium] 2 mg PO BID #60 cap 12/09/15 Rx Metoprolol Tartrate [Lopressor] 25 mg PO BID #60 tab 12/09/15 Rx Nitroglycerin Sl Tabs [Nitrostat] 0.4 mg SUBLINGUAL Q5M PRN #25 tab 12/09/15 Rx amLODIPine [Norvasc] 5 mg PO BID 60 Days tab 12/09/15 Rx predniSONE 40 mg PO DAILY #16 tab 12/09/15 Rx Allergies Allergy/AdvReac Type Severity Reaction Status Date / Time Penicillins AdvReac Severe Swelling Verified 12/07/15 17:15 morphine AdvReac Hallucinati Verified 12/07/15 17:21 ons Physical Exam Vitals: Vital Signs Pulse Resp BP Pulse Ox 03/24/18 03:53 99 18 126/60 97 03/24/18 03:39 85 17 146/74 Intake and Output 03/23/18 03/24/18 03/24/18 22:59 06:59 14:59 Intake Total 637.2 Balance 637.2 Intake: IV 637.2 Other: Weight 97.069 kg Results - Lab Results Most recent lab results ABG pH <7.00 (7.35-7.45) L* 03/24/18 08:55 ABG pCO2 32 mmHg (35-45) L 03/24/18 08:55 ABG pO2 92 mmHg (83-108) 03/24/18 08:55 ABG HCO3 7 mmol/L (21-25) L* 03/24/18 08:55 ABG O2 Saturation 95.1 % (94-97) 03/24/18 08:55 Calcium 8.1 mg/dL (8.4-10.2) L 03/24/18 06:15 Magnesium 3.4 mg/dL (1.6-2.3) H 03/24/18 03:47 03/24/18 06:15 03/24/18 06:15 Assessment and Plan Plan: Assessment: 1. Oliguric acute kidney injury secondary to ATN secondary to hypotension and cardiac arrest. Creatinine 13 169 on admission and is 12.3 today. Creatinine in June 2016 was 1.1. 2. STEMI status post cardiac catheterization with 2 stents placed to the RCA. 3. Hyperkalemia secondary to acute kidney injury and metabolic acidosis. 4. Metabolic acidosis secondary to acute kidney injury and lactic acidosis. 5. Metabolic acidosis and respiratory acidosis. Plan: Patient remains extremely hemodynamically unstable and is not a candidate for renal replacement therapy at this time. Furthermore, the family does not wish for aggressive measures including renal replacement therapy. I will medically treat the hyperkalemia again with 10 units of IV insulin with an amp of D50 along with 20 mg of nebulized albuterol. I will give him 1 g of IV calcium as well. Lasix 80 mg IV once today. Maintain bicarb drip at 200 mL an hour. Discontinue normal saline. Overall prognosis poor. Thank you for the consultation. I will continue to follow the patient with you during his hospital stay.
[2018-03-24 10:07] VITALS: BP 91/53
[2018-03-24] MEDS ORDERED: LORazepam 2 MG/ML INJ IV PRN (10:12)
[2018-03-24] MEDS ORDERED: MORPHINE SULFATE 4 MG/ML SYRINGE IVP ONE (10:12)
[2018-03-24] MEDS ORDERED: MORPHINE SULFATE 4 MG/ML SYRINGE IV PRN (10:12)
[2018-03-24] MEDS ORDERED: ONDANSETRON 4 MG/2 ML VIAL IVP PRN (10:12)
[2018-03-24] MEDS ORDERED: ACETAMINOPHEN IV (For NPO) 1,000 MG in EMPTY BAG 1 BAG IVPB ONE (10:12)
[2018-03-24 10:30] LABS: Glucose,Whole Blood 326 mg/dL (75-99)
[2018-03-24] MEDS ORDERED: MORPHINE SULFATE (100 MG/2 ML) 100 MG in SODIUM CHLORIDE 0.9% 100 ML IV SCH (10:30)
[2018-03-24] MEDS ORDERED: SCOPOLAMINE 1.5MG/72HR PATCH TRANSDERM SCH (10:30)
[2018-03-24] MEDS ORDERED: DOPamine DRIP 800 MG in DEXTROSE/WATER 1 500ML.BAG IV SCH (10:30)
--- NOTE | 2018-03-24 11:56 | PN ---
PROGRESS NOTE HISTORY: Mr. Gomez underwent stenting of a totally occluded RCA this morning. He is on a very high dose of Levophed. I saw the patient again. He has a balloon pump in place. Augmented pressure is in the 80s with a very high dose of Levophed. I am not sure the patient is making meaningful progress. His blood gases after being on a bicarb drip and several boluses of bicarb is still 6.9 and his creatinine is high. Urine output is 0. Prognosis remains poor. I talked to the patient's son and and suggested that if he does not make progress, maybe we should withdraw all of our efforts at this time. They are going to think this over and will let us know. Prognosis remains poor. Mortality seems very likely, but patient's family seems to be very understanding of this not unexpected outcome. MART / PHILLY: [id number] /
--- NOTE | 2018-03-24 12:27 | P.HPIM ---
<Linnea Bernstein - Last Filed: 03/24/18 12:42> History of Present Illness H&P Date: 03/24/18 Chief Complaint: STEMI/ARF/Respiratory failure History and physical and discharge summary. This is a 78-year-old male patient one of with known history of coronary artery disease, with previous history of coronary intervention and stenting of the OM back in 2016, presented to [facility] because of generalized weakness and he was found to be profoundly hypotensive and in shock state. Apparently the patient is feeling weak for the past almost 5-7 days and he did not seek any medical attention. His initial sinus rhythm was sinus. In the emergency department he was cyanotic and he was hypothermic and he progressively low diminished level of consciousness to the point where the patient had to be intubated and placed on a mechanical ventilator. The intubation was done at [facility]. He was started on dopamine for hemodynamic support as the patient had hypotension postintubation. A tripple lumen cath was inserted in the right subclavian. Initial EKG showing ST segment elevation inferior leads consistent with acute inferior wall myocardial infarction. The patient was immediately taken to the [facility]. He was in cardiogenic shock. He was profoundly hypotensive he had an intra-aortic balloon pump was inserted and following that the patient underwent an emergent cardiac catheterization where he underwent stenting of the RCA. 2 stents were placed with good angiographic results. The patient during the procedure went into atrial fibrillation. He also had a run of V. tach following the procedure requiring defibrillation. At this point in time the patient is unresponsive, intubated on a mechanical ventilator. At the time of arrival this morning he was an assist-control mode at the rate of 12 with a tidal volume of 500 FiO2 of 100% and PEEP of 5. His initial blood gases with a pH of 6.9 with a pCO2 of 28 and pO2 of 11. His BUN his 117 a creatinine of 12.3. He has a Ross catheter and he is producing any urine output. His blood work shows a potassium level of 6.5, bicarb level of 7 , lactic acid level is at 6.9. Troponin peaked at 4.0. BNP level is 3080. The patient is hypothermic. His initial temperature was 90. External warming is being performed a right on his subsequent temperature came up to 92. He was becoming slightly asynchronous with a mechanical ventilator. Based on that I started him on sedation and currently is on 10 mics of propofol. The patient is an massive cardiogenic shock. He is on 60 mics of norepinephrine infusion. He is also on dopamine 5 g and dobutamine at 5 g and as mentioned he has an intra-aortic balloon pump with 1-1 augmentation. The patient has marked diminished pulses in lower extremities bilaterally and minimal Doppler signals can be appreciated in the feet bilaterally. Pupils are about 8 mm in size and sluggishly reactive to light. Unresponsive. Does not follow any commands. Does not withdraw to painful stimulation. He is also on insulin drip for blood sugar control. The patient is also on a bicarb drip at 200 mL an hour. He was severely acidotic. He was also given 3 A of bicarb infusion here in the intensive care unit. Patient will be placed in comfort care as his prognosis is very poor and family were in agreement for that. Review of Systems ROS unobtainable: due to endotracheal tube All systems: negative Past Medical History Past Medical History: Coronary Artery Disease (CAD), GERD/Reflux, Hypertension, Osteoarthritis (OA), Prostate Disorder Additional Past Medical History / Comment(s): BPH, ulcerative Colitis, HTN, coronary artery disease, hyperlipidemia History of Any Multi-Drug Resistant Organisms: None Reported Past Surgical History: Appendectomy, Bowel Resection, Hernia Repair Additional Past Surgical History / Comment(s): Right hernia repair >40 years, colectomy, appendectomy, right-sided chest tube Past Anesthesia/Blood Transfusion Reactions: No Reported Reaction Past Psychological History: No Psychological Hx Reported Smoking Status: Former smoker Past Alcohol Use History: None Reported Past Drug Use History: None Reported - Past Family History Father Family Medical History: Cancer (Lung) Mother Family Medical History: Cancer (Leukemia), Hypertension Additional Family Medical History / Comment(s): 2 sisters 3 brothers one brother from meningitis as a child one brother from the 4 children one daughter with stage IV breast cancer Medications and Allergies Home Medications Medication Instructions Recorded Confirmed Type Aspirin 325 mg PO DAILY tab 12/09/15 03/24/18 Rx Isosorbide Mononitrate ER [Imdur] 30 mg PO DAILY #30 tab.er.24h 12/09/15 Rx Metoprolol Tartrate [Lopressor] 25 mg PO BID #60 tab 12/09/15 03/24/18 Rx Nitroglycerin Sl Tabs [Nitrostat] 0.4 mg SUBLINGUAL Q5M PRN #25 tab 12/09/1501/01 Rx Atorvastatin [Lipitor] 20 mg PO DAILY 03/24/18 03/24/18 History Citalopram Hydrobromide [CeleXA] 20 mg PO DAILY 03/24/18 03/24/18 History Lisinopril [Zestril] 20 mg PO BID 03/24/18 03/24/18 History buPROPion HCL [Wellbutrin SR] 150 mg PO DAILY 03/24/18 03/24/18 History clonazePAM [KlonoPIN] 0.25 mg PO BID 03/24/18 03/24/18 History Allergies Allergy/AdvReac Type Severity Reaction Status Date / Time Penicillins AdvReac Severe Swelling Verified 03/24/18 11:39 morphine AdvReac Hallucinati Verified 03/24/18 11:39 ons Physical Exam Vitals: Vital Signs Pulse Resp BP Pulse Ox 03/24/18 11:30 69 20 55 L 03/24/18 11:15 79 20 03/24/18 11:00 85 16 03/24/18 10:45 96 21 03/24/18 10:30 100 13 03/24/18 10:15 98 14 03/24/18 10:00 97 27 H 03/24/18 09:55 101 H 15 96 03/24/18 09:50 101 H 28 H 03/24/18 09:45 100 27 H 03/24/18 09:40 99 21 03/24/18 09:35 98 19 03/24/18 09:30 98 15 03/24/18 09:25 98 22 91/53 03/24/18 09:20 98 19 91/53 03/24/18 09:15 96 16 91/53 03/24/18 09:10 96 8 L 03/24/18 09:05 94 6 L 91/53 03/24/18 09:00 94 19 91/53 03/24/18 08:55 96 20 91/53 03/24/18 08:50 97 24 96/56 03/24/18 08:45 101 H 35 H 03/24/18 08:40 105 H 31 H 60/03/24/18 08:35 120 H 6 L 60/24 03/24/18 08:30 111 H 16 60/24 03/24/18 08:25 101 H 19 60/24 03/24/18 08:20 113 H 22 60/24 03/24/18 08:15 112 H 37 H 03/24/18 08:10 111 H 25 H 60/24 03/24/18 08:05 97 30 H 60/24 03/24/18 08:00 96 30 H 60/24 03/24/18 07:55 89 37 H 60/24 03/24/18 07:50 93 37 H 60/24 03/24/18 07:45 90 37 H 60/24 03/24/18 07:40 81 35 H 60/24 03/24/18 07:35 89 36 H 03/24/18 07:30 79 37 H 03/24/18 07:25 90 27 H 60/24 03/24/18 07:20 77 33 H 60/24 03/24/18 07:15 84 34 H 60/24 03/24/18 07:10 81 34 H 60/24 03/24/18 07:05 85 34 H 60/24 03/24/18 07:00 98 30 H 03/24/18 06:55 87 36 H 60/24 03/24/18 06:50 81 15 60/24 03/24/18 06:45 82 28 H 60/24 03/24/18 06:40 78 33 H 60/24 03/24/18 06:35 82 24 60/24 03/24/18 06:30 79 22 03/24/18 06:25 67 34 H 84 L 03/24/18 06:20 97 32 H 03/24/18 06:15 74 32 H 03/24/18 06:10 75 31 H 60/24 03/24/18 06:05 88 30 H 03/24/18 03:53 99 18 126/60 97 03/24/18 03:39 85 17 146/74 Intake and Output 03/23/18 03/24/18 03/24/18 22:59 06:59 14:59 Intake Total 1347.2 1754.728 Output Total 1000 Balance 1347.2 754.728 Intake: IV 637.2 1000 Dextrose 5% in Water 1, 1000 000 ml @ 200 mls/hr IV . Q5H45M JAYA with Sodium Bicarb (1 Meq/ml) 150 ml Rx#:[id number] Intake, IV Titration 710 754.728 Amount Calcium Chloride 1,000 mg 100 In Sodium Chloride 0.9% 100 ml @ 100 mls/hr IVPB ONCE STA Rx#:[id number] DOBUTamine DRIP 500 mg In 48.048 Dextrose/Water 1 250ml. bag @ 5 MCG/KG/MIN 14.56 mls/hr IV .[id number] JAYA Rx #:[id number] DOPamine DRIP 800 mg In 73.71 Dextrose/Water 1 500ml. bag @ 5 MCG/KG/MIN 18.2 mls/hr IV .Q24H JAYA Rx#: [id number] Dextrose 5% in Water 1, 200 000 ml @ 200 mls/hr IV . Q5H45M JAYA with Sodium Bicarb (1 Meq/ml) 150 ml Rx#:[id number] EPINEPHrine 2 mg In 30 Dextrose 5% in Water 250 ml @ 2 MCG/MIN 15.12 mls/ hr IV .[id number] [facility] Rx#: [id number] Insulin Regular 100 unit 10.05 In Sodium Chloride 0.9% 100 ml @ Per Protocol IV .Q0M JAYA Rx#:[id number] Morphine Sulfate (100 mg/ 2 2 ml) 100 mg In Sodium Chloride 0.9% 100 ml @ 1 MG/HR 1.02 mls/hr IV . Q24H [facility] Rx#:[id number] Norepinephrine 16 mg In 65 Sodium Chloride 0.9% 250 ml @ Titrate IV .Q0M [facility] Rx#:[id number] Propofol 1,000 mg In 10.92 Empty Bag 1 bag @ Titrate IV .Q0M [facility] Rx#: [id number] Sodium Chloride 0.9% 1, 10 15 000 ml @ 0 mls/hr IV .STK -MED ONE Rx#:[id number] Sodium Chloride 0.9% 500 700 200 ml 500 ml @ 999 mls/hr IV .Q31M [facility] Rx#:[id number] Output: Gastric Drainage 700 Urine 0 Emesis 300 Other: Weight 97.069 kg 97.06 kg ABP, PAP, CO, CI - Last 8 Hours Arterial Blood Pressure 90/45 Arterial Blood Pressure 61/24 Arterial Blood Pressure 53/24 Arterial Blood Pressure 65/25 Arterial Blood Pressure 70/22 Arterial Blood Pressure 66/34 Arterial Blood Pressure 93/35 Arterial Blood Pressure 99/35 Arterial Blood Pressure 79/26 Arterial Blood Pressure 71/20 Arterial Blood Pressure 69/20 Arterial Blood Pressure 66/21 Arterial Blood Pressure 65/24 Arterial Blood Pressure 59/30 Arterial Blood Pressure 65/22 Arterial Blood Pressure 65/27 Arterial Blood Pressure 65/25 Arterial Blood Pressure 62/28 Arterial Blood Pressure 89/21 Arterial Blood Pressure 77/36 Arterial Blood Pressure 87/14 Arterial Blood Pressure 95/40 Arterial Blood Pressure 86/48 Arterial Blood Pressure 63/33 Arterial Blood Pressure 74/30 Arterial Blood Pressure 67/32 Arterial Blood Pressure 65/36 Arterial Blood Pressure 64/36 Arterial Blood Pressure 63/39 Arterial Blood Pressure 67/35 Arterial Blood Pressure 72/34 Arterial Blood Pressure 72/35 Arterial Blood Pressure 67/41 Arterial Blood Pressure 73/37 Arterial Blood Pressure 69/29 Arterial Blood Pressure 63/31 Arterial Blood Pressure 73/31 Arterial Blood Pressure 67/37 Arterial Blood Pressure 82/42 Arterial Blood Pressure 108/62 Arterial Blood Pressure 111/55 Arterial Blood Pressure 129/58 Arterial Blood Pressure 118/64 Arterial Blood Pressure 22/22 Arterial Blood Pressure 66/33 Arterial Blood Pressure 65/24 Arterial Blood Pressure 63/24 Arterial Blood Pressure 55/24 Arterial Blood Pressure 67/29 Arterial Blood Pressure 59/33 Arterial Blood Pressure 68/32 - Constitutional General appearance: severe distress - EENT Eyes: abnormal pupil ENT: other (ET and OGT in place) Ears: bilateral: normal - Neck Carotids: bilateral: upstroke delayed - Respiratory Respiratory: bilateral: diminished, rhonchi, wheezing, prolonged expiration, negative: dullness, rales - Cardiovascular Rhythm: irregularly irregular Heart sounds: normal: S1, S2 Abnormal Heart Sounds: systolic murmur - Gastrointestinal General gastrointestinal: decreased bowel sounds, soft, no tenderness, no ventral hernia - Integumentary Integumentary: cyanotic, decreased turgor, pale - Psychiatric Psychiatric: no A&O x's 3, no appropriate affect, no intact judgment & insight Results CBC & Chem 7: 03/24/18 06:15 03/24/18 06:15 Labs: Abnormal Lab Results - Last 24 Hours (Table) 03/24/18 03/24/18 03/24/18 Range/Units 03:47 03:47 03:47 WBC 25.0 H (3.8-10.6) k/uL MCHC 30.9 L (31.0-37.0) g/dL Neutrophils # (1.3-7.7) k/uL Neutrophils # (Manual) 19.50 H (1.3-7.7) k/uL Monocytes # (0-1.0) k/uL Monocytes # (Manual) 2.25 H (0-1.0) k/uL APTT (22.0-30.0) sec ABG pH (7.35-7.45) ABG pCO2 (35-45) mmHg ABG pO2 (83-108) mmHg ABG HCO3 (21-25) mmol/L ABG Total CO2 (19-24) mmol/L ABG O2 Saturation (94-97) % Sodium 135 L (137-145) mmol/L Potassium 6.5 H* (3.5-5.1) mmol/L Chloride (98-107) mmol/L Carbon Dioxide 5 L* (22-30) mmol/L BUN 119 H* (9-20) mg/dL Creatinine 13.69 H* (0.66-1.25) mg/dL Glucose 209 H (74-99) mg/dL POC Glucose (mg/dL) (75-99) mg/dL Plasma Lactic Acid Edouard (0.7-2.0) mmol/L Calcium (8.4-10.2) mg/dL Magnesium (1.6-2.3) mg/dL AST 72 H (17-59) U/L Total Creatine Kinase 433 H (55-170) U/L CK-MB (CK-2) 32.0 H (0.0-2.4) ng/mL Troponin I 2.410 H* (0.000-0.034) ng/mL 03/24/18 03/24/18 03/24/18 Range/Units 03:47 03:47 04:25 WBC (3.8-10.6) k/uL MCHC (31.0-37.0) g/dL Neutrophils # (1.3-7.7) k/uL Neutrophils # (Manual) (1.3-7.7) k/uL Monocytes # (0-1.0) k/uL Monocytes # (Manual) (0-1.0) k/uL APTT >200.0 H* (22.0-30.0) sec ABG pH <7.00 L* (7.35-7.45) ABG pCO2 (35-45) mmHg ABG pO2 >400 H (83-108) mmHg ABG HCO3 8 L* (21-25) mmol/L ABG Total CO2 7 L (19-24) mmol/L ABG O2 Saturation 99.0 H (94-97) % Sodium (137-145) mmol/L Potassium (3.5-5.1) mmol/L Chloride (98-107) mmol/L Carbon Dioxide (22-30) mmol/L BUN (9-20) mg/dL Creatinine (0.66-1.25) mg/dL Glucose (74-99) mg/dL POC Glucose (mg/dL) (75-99) mg/dL Plasma Lactic Acid Edouard (0.7-2.0) mmol/L Calcium (8.4-10.2) mg/dL Magnesium 3.4 H (1.6-2.3) mg/dL AST (17-59) U/L Total Creatine Kinase (55-170) U/L CK-MB (CK-2) (0.0-2.4) ng/mL Troponin I (0.000-0.034) ng/mL 03/24/18 03/24/18 03/24/18 Range/Units 04:30 04:30 06:14 WBC 23.8 H (3.8-10.6) k/uL MCHC (31.0-37.0) g/dL Neutrophils # 19.5 H (1.3-7.7) k/uL Neutrophils # (Manual) (1.3-7.7) k/uL Monocytes # 1.2 H (0-1.0) k/uL Monocytes # (Manual) (0-1.0) k/uL APTT (22.0-30.0) sec ABG pH (7.35-7.45) ABG pCO2 (35-45) mmHg ABG pO2 (83-108) mmHg ABG HCO3 (21-25) mmol/L ABG Total CO2 (19-24) mmol/L ABG O2 Saturation (94-97) % Sodium (137-145) mmol/L Potassium 6.6 H* (3.5-5.1) mmol/L Chloride 109 H (98-107) mmol/L Carbon Dioxide 9 L* (22-30) mmol/L BUN 116 H* (9-20) mg/dL Creatinine 12.33 H* (0.66-1.25) mg/dL Glucose 176 H (74-99) mg/dL POC Glucose (mg/dL) 228 H (75-99) mg/dL Plasma Lactic Acid Edouard (0.7-2.0) mmol/L Calcium (8.4-10.2) mg/dL Magnesium (1.6-2.3) mg/dL AST (17-59) U/L Total Creatine Kinase (55-170) U/L CK-MB (CK-2) (0.0-2.4) ng/mL Troponin I (0.000-0.034) ng/mL 03/24/18 03/24/18 03/24/18 Range/Units 06:15 06:15 06:15 WBC 19.0 H (3.8-10.6) k/uL MCHC (31.0-37.0) g/dL Neutrophils # 16.7 H (1.3-7.7) k/uL Neutrophils # (Manual) (1.3-7.7) k/uL Monocytes # (0-1.0) k/uL Monocytes # (Manual) (0-1.0) k/uL APTT (22.0-30.0) sec ABG pH (7.35-7.45) ABG pCO2 (35-45) mmHg ABG pO2 (83-108) mmHg ABG HCO3 (21-25) mmol/L ABG Total CO2 (19-24) mmol/L ABG O2 Saturation (94-97) % Sodium 134 L (137-145) mmol/L Potassium 6.5 H* (3.5-5.1) mmol/L Chloride (98-107) mmol/L Carbon Dioxide 7 L* (22-30) mmol/L BUN 117 H* (9-20) mg/dL Creatinine 12.30 H* (0.66-1.25) mg/dL Glucose 228 H (74-99) mg/dL POC Glucose (mg/dL) (75-99) mg/dL Plasma Lactic Acid Edouard (0.7-2.0) mmol/L Calcium 8.1 L (8.4-10.2) mg/dL Magnesium (1.6-2.3) mg/dL AST (17-59) U/L Total Creatine Kinase (55-170) U/L CK-MB (CK-2) (0.0-2.4) ng/mL Troponin I 4.030 H* (0.000-0.034) ng/mL 03/24/18 03/24/18 03/24/18 Range/Units 06:30 06:55 08:05 WBC (3.8-10.6) k/uL MCHC (31.0-37.0) g/dL Neutrophils # (1.3-7.7) k/uL Neutrophils # (Manual) (1.3-7.7) k/uL Monocytes # (0-1.0) k/uL Monocytes # (Manual) (0-1.0) k/uL APTT (22.0-30.0) sec ABG pH <7.00 L* (7.35-7.45) ABG pCO2 28 L (35-45) mmHg ABG pO2 (83-108) mmHg ABG HCO3 6 L* (21-25) mmol/L ABG Total CO2 7 L (19-24) mmol/L ABG O2 Saturation (94-97) % Sodium (137-145) mmol/L Potassium (3.5-5.1) mmol/L Chloride (98-107) mmol/L Carbon Dioxide (22-30) mmol/L BUN (9-20) mg/dL Creatinine (0.66-1.25) mg/dL Glucose (74-99) mg/dL POC Glucose (mg/dL) 146 H (75-99) mg/dL Plasma Lactic Acid Edouard 6.9 H* (0.7-2.0) mmol/L Calcium (8.4-10.2) mg/dL Magnesium (1.6-2.3) mg/dL AST (17-59) U/L Total Creatine Kinase (55-170) U/L CK-MB (CK-2) (0.0-2.4) ng/mL Troponin I (0.000-0.034) ng/mL 03/24/18 03/24/18 Range/Units 08:55 10:03 WBC (3.8-10.6) k/uL MCHC (31.0-37.0) g/dL Neutrophils # (1.3-7.7) k/uL Neutrophils # (Manual) (1.3-7.7) k/uL Monocytes # (0-1.0) k/uL Monocytes # (Manual) (0-1.0) k/uL APTT (22.0-30.0) sec ABG pH <7.00 L* (7.35-7.45) ABG pCO2 32 L (35-45) mmHg ABG pO2 (83-108) mmHg ABG HCO3 7 L* (21-25) mmol/L ABG Total CO2 8 L (19-24) mmol/L ABG O2 Saturation (94-97) % Sodium (137-145) mmol/L Potassium (3.5-5.1) mmol/L Chloride (98-107) mmol/L Carbon Dioxide (22-30) mmol/L BUN (9-20) mg/dL Creatinine (0.66-1.25) mg/dL Glucose (74-99) mg/dL POC Glucose (mg/dL) 326 H (75-99) mg/dL Plasma Lactic Acid Edouard (0.7-2.0) mmol/L Calcium (8.4-10.2) mg/dL Magnesium (1.6-2.3) mg/dL AST (17-59) U/L Total Creatine Kinase (55-170) U/L CK-MB (CK-2) (0.0-2.4) ng/mL Troponin I (0.000-0.034) ng/mL Thrombosis Risk Factor Assmnt - DVT/VTE Prophylaxis DVT/VTE Prophylaxis: Pharmacologic Prophylaxis ordered, Mechanical Prophylaxis ordered Assessment and Plan Assessment: Assessment and plan: 1. Acute STEMI post PCI of the RCA. continue with supportive care. 2. cardiogenic shock following acute STEMI. The patient has an intra-aortic balloon pump. The patient is on high dose of pressors including norepinephrine , dopamine and dobutamine. The patient also has an intra-aortic balloon pump. Blood pressure remains low and the patient is anuric 3. Acute kidney injury due to poor perfusion and acute tubular necrosis with profound metabolic acidosis and hyperkalemia . nephrology is following. 4. Hyperkalemia. we will continue with Bicaeb drip. 5. Severe metabolic acidosis due to renal failure and lactc acidosis due to hypoperfusion. we will continue with IVF and pressors. 6.Acute vent-dependent respiratory failure due to STEMI and cardiogeneic shock along with profound acidosis. we will continue with current vent setting. 7. coronary artery disease with previous intervention stenting of the OM now PCI of the RCA. 8. Hypertension, now hypotensive due to cardiogenic shock. 9. Hyperlipidemia. stable. 10. BPH. Has ross catheter. 11. Hypothermia. continue with warming the patient. 12. Admitted to inpatient. 13. NO code and start comfort measures with terminal wean. <Suni Loya A - Last Filed: 03/25/18 08:05> History of Present Illness Patient on March 24. Please see nursing documentation for detail. Pulmonary cause of : Acute STEMI in cardiogenic shock. Physical Exam Vitals: Vital Signs Pulse Resp BP Pulse Ox 03/24/18 11:45 0 L 0 L 03/24/18 11:40 26 L 0 L 03/24/18 11:30 69 20 55 L 03/24/18 11:15 79 20 03/24/18 11:00 85 16 03/24/18 10:45 96 21 03/24/18 10:30 100 13 03/24/18 10:15 98 14 03/24/18 10:00 97 27 H 03/24/18 09:55 101 H 15 96 03/24/18 09:50 101 H 28 H 03/24/18 09:45 100 27 H 03/24/18 09:40 99 21 03/24/18 09:35 98 19 03/24/18 09:30 98 15 03/24/18 09:25 98 22 91/53 03/24/18 09:20 98 19 91/53 03/24/18 09:15 96 16 91/53 03/24/18 09:10 96 8 L 03/24/18 09:05 94 6 L 91/53 03/24/18 09:00 94 19 91/53 03/24/18 08:55 96 20 91/53 03/24/18 08:50 97 24 96/56 03/24/18 08:45 101 H 35 H 03/24/18 08:40 105 H 31 H 60/24 03/24/18 08:35 120 H 6 L 60/24 03/24/18 08:30 111 H 16 60/24 03/24/18 08:25 101 H 19 60/24 03/24/18 08:20 113 H 22 60/24 03/24/18 08:15 112 H 37 H 03/24/18 08:10 111 H 25 H 60/24 03/24/18 08:05 97 30 H 60/24 Results CBC & Chem 7: 03/24/18 06:15 03/24/18 06:15 Labs: Abnormal Lab Results - Last 24 Hours (Table) 03/24/18 03/24/18 03/24/18 Range/Units 03:47 08:05 08:55 ABG pH <7.00 L* (7.35-7.45) ABG pCO2 32 L (35-45) mmHg ABG HCO3 7 L* (21-25) mmol/L ABG Total CO2 8 L (19-24) mmol/L POC Glucose (mg/dL) 146 H (75-99) mg/dL Magnesium 3.4 H (1.6-2.3) mg/dL 03/24/18 Range/Units 10:03 ABG pH (7.35-7.45) ABG pCO2 (35-45) mmHg ABG HCO3 (21-25) mmol/L ABG Total CO2 (19-24) mmol/L POC Glucose (mg/dL) 326 H (75-99) mg/dL Magnesium (1.6-2.3) mg/dL Microbiology - Last 24 Hours (Table) 03/24/18 06:41 Gram Stain - Preliminary Sputum Sputum Culture - Preliminary
[2018-03-24 12:34] VITALS: PULSE 0; RESP 0
[2018-03-24 15:04] VITALS: BMI 29.0
[2018-03-24] MEDS ORDERED: ATORVASTATIN 80 MG TAB PO SCH (21:00)
[2018-03-25 10:13] LABS: Hemoglobin A1C 5.4 % (4.0-6.0)
[2018-03-25 10:28] LABS: ABG PH <7.00 (7.35-7.45)
[2018-03-25 15:43] LABS: Partial Thromboplastin Time >200.0 sec (22.0-30.0)
== END 2018-03-24 16:00 | disposition expired | DRG 270 ==
LOC: EC 03:36 → EDSTATUS 03:36 → 2SICU 03:56
PROVIDERS: ADMIT Internal Medicine; ATTEND Internal Medicine
PROC: B2111ZZ Fluoroscopy of Multiple Coronary Arteries using Low Osmolar Contrast (ICD-10-PCS; 2018-03-24)
PROC: 5A2204Z Restoration of Cardiac Rhythm, Single (ICD-10-PCS; 2018-03-24)
PROC: 5A1935Z Respiratory Ventilation, Less than 24 Consecutive Hours (ICD-10-PCS; 2018-03-24)
PROC: 02H633Z Insertion of Infusion Device into Right Atrium, Percutaneous Approach (ICD-10-PCS; 2018-03-24)
PROC: 5A02210 Assistance with Cardiac Output using Balloon Pump, Continuous (ICD-10-PCS; principal; 2018-03-24 03:44)
PROC: 027035Z Dilation of Coronary Artery, One Artery with Two Drug-eluting Intraluminal Devices, Percutaneous Approach (ICD-10-PCS; 2018-03-24 03:44)
PROC: 4A023N7 Measurement of Cardiac Sampling and Pressure, Left Heart, Percutaneous Approach (ICD-10-PCS; 2018-03-24 03:44)
DX: I21.11 ST elevation (STEMI) myocardial infarction involving right coronary artery (principal); N17.0 Acute kidney failure with tubular necrosis; J96.00 Acute respiratory failure, unspecified whether with hypoxia or hypercapnia; K51.90 Ulcerative colitis, unspecified, without complications; E87.4 Mixed disorder of acid-base balance; I47.2 Ventricular tachycardia; Q24.5 Malformation of coronary vessels; R47.01 Aphasia; R57.0 Cardiogenic shock; E87.5 Hyperkalemia; Z66 Do not resuscitate; Z51.5 Encounter for palliative care; E86.0 Dehydration; E86.1 Hypovolemia; I48.91 Unspecified atrial fibrillation; K21.9 Gastro-esophageal reflux disease without esophagitis; I12.9 Hypertensive chronic kidney disease with stage 1 through stage 4 chronic kidney disease, or unspecified chronic kidney disease; N18.9 Chronic kidney disease, unspecified; E78.00 Pure hypercholesterolemia, unspecified; M19.90 Unspecified osteoarthritis, unspecified site; I25.10 Atherosclerotic heart disease of native coronary artery without angina pectoris; E78.5 Hyperlipidemia, unspecified; N40.0 Benign prostatic hyperplasia without lower urinary tract symptoms; Z79.82 Long term (current) use of aspirin; Z79.899 Other long term (current) drug therapy; Z87.891 Personal history of nicotine dependence; Z90.49 Acquired absence of other specified parts of digestive tract; Z88.5 Allergy status to narcotic agent; Z88.0 Allergy status to penicillin; Z80.1 Family history of malignant neoplasm of trachea, bronchus and lung; Z80.6 Family history of leukemia; Z82.49 Family history of ischemic heart disease and other diseases of the circulatory system; Z80.3 Family history of malignant neoplasm of breast; Z82.0 Family history of epilepsy and other diseases of the nervous system
CPT/HCPCS: 33967; 36415; 36556; 71045; 80048; 80053; 82550; 82553; 82805; 83036; 83605; 83735; 83880; 84484; 85025; 85610; 85730; 87070; 87205; 93005; 93458; 94002; 96374; 96375; 99285; C1874